=== PATIENT | male | born 1950 | race African-American/Black ===

== ENCOUNTER 2017-10-18 12:34 | Emergency (ER) | payer BC | END 2017-10-18 14:38 | disposition home or self-care (01) | LOC: ERS 12:34 | DX: J20.9 Acute bronchitis, unspecified (principal); I10 Essential (primary) hypertension | CPT/HCPCS: 87804; 99283 ==

== ENCOUNTER 2019-01-23 13:29 | Outpatient (CLI) | payer MEDICARE ==
--- NOTE | 2019-01-23 10:28 | HP ---
HISTORY OF PRESENT ILLNESS: Mr. Richard Marrufo is a very pleasant 68-year-old gentleman, who [facility] of lesions of the right and left feet and lower legs associated with itching, "little" first noted approximately 3 to 4 weeks ago. The patient also has lesions of the right and left upper extremities. The patient states that he was seen by Dr. Glaser and prescribed Bactroban ointment, which he has been utilizing for the past week. The patient states that he had been seen by Dr. Glaser previously for the lesions and at this time, had been prescribed a course of Keflex for 10 days in addition to a steroid cream. At the second visit with Dr. Glaser, the patient states Bactroban was added to the patient's regimen. The patient reports that he utilizes Ivory soap for cleansing of his skin. PAST MEDICAL HISTORY: Hypertension. PAST SURGICAL HISTORY: Negative. MEDICATIONS: 1. Lisinopril/hydrochlorothiazide. 2. Triamcinolone 0.5% cream. 3. Bactroban ointment. ALLERGIES: NO KNOWN DIAGNOSED ALLERGIES. SOCIAL HISTORY: Social history significant for tobacco use of 1 pack of cigarettes per day for 15 years. The patient states that he stopped smoking 9 years ago. The patient admits to the consumption of 4 to 6 beers per day for the past 40 years. FAMILY HISTORY: Family history is negative for diabetes mellitus or coronary artery disease. PHYSICAL EXAMINATION: VITAL SIGNS: Temperature 98.0, pulse 79, respirations 16, and blood pressure 139/71. GENERAL: A 68-year-old gentleman, lying on table in examination room, in no acute distress. HEENT: Normocephalic and atraumatic. NECK: No nuchal rigidity. CHEST: Clear to auscultation. CV: Regular rate and rhythm. ABDOMEN: Soft. EXTREMITIES: Multiple lesions of the right and left feet and lower legs are present associated with scaling and weeping. No open wounds are present over the right or left lower extremities. No cellulitis of the right or left lower extremity is present. No maceration of the skin of the right or left lower extremity is present. A dorsalis pedis pulse and posterior tibial pulse are palpable on the right and on the left. Ejro-na-giazfylp edema of the right and left lower extremities is present on today's exam. NEUROLOGIC: Grossly nonfocal. ASSESSMENT AND PLAN: 1. Stasis dermatitis. The patient has been asked to discontinue the use of ivory soap. He has been asked to cleanse his skin with Dove soap instead. The patient has also been given a prescription for Synalar ointment 0.025% to be applied to the skin up to twice a day. The first application is to be after cleansing of his skin with Dove soap. The patient states he will return to clinic if the lesions fail to improve with the preceding regimen. The patient understands and is in agreement with the preceding treatment plan. 2. Hypertension. Job ID: [id number]
== END 2019-01-23 13:30 | disposition home or self-care (01) ==
LOC: WCC 13:29
PROVIDERS: ATTEND Family Medicine
DX: I87.2 Venous insufficiency (chronic) (peripheral) (principal); I10 Essential (primary) hypertension
CPT/HCPCS: 97602; 99203; G0463

== ENCOUNTER 2019-02-09 06:44 | Emergency (ER) | payer MEDICARE ==
[2019-02-09 08:07] LABS: #Eosinphils 0.3 thou/uL (0.0-0.7); #Lymphocytes 1.1 thou/uL (1.20-3.40); #Monocytes 0.5 thou/uL (0.11-0.59); #Neutrophils 1.8 thou/uL (1.40-6.50); %Basophils 0.6 % (0.0-1.0); %Lymphocytes 30.1 % (21.0-51.0); %Monocytes 12.9 % (0.0-10.0); %Neutrophils 49.4 % (42.0-75.0); Hemoglobin 14.9 g/dL (14.0-18.0); Mean Corpuscular HGB CONC 34.6 g/dL (32.0-36.0); Mean Corpuscular Hemoglobin 32.4 pg (27.0-31.0); Mean Corpuscular Volume 93.8 fL (78.0-98.0); Mean Platelet Volume 6.8 fL (7.4-10.4); Platelet Count 226 thou/uL (130-400); RBC Distribution Width 12.2 % (11.5-14.5); Red Blood Cell (RBC) Count 4.61 mill/uL (4.70-6.10); White Blood Cell (WBC) Count 3.6 thou/uL (4.8-10.8)
[2019-02-09 08:27] LABS: ALT (SGPT) 27 U/L (8-55); AST (SGOT) 31 U/L (5-34); Albumin 4.1 g/dL (3.4-4.8); Alkaline Phosphatase 74 U/L (40-150); Anion Gap 12 mmol/L (10-20); BUN (Urea Nitrogen) 10 mg/dL (8.4-25.7); Bilirubin, Total 0.9 mg/dL (0.2-1.2); Calc. Creatinine Clearance 0 mL/min (70-130); Calcium 10.3 mg/dL (7.8-10.44); Carbon Dioxide 26 mmol/L (23-31); Chloride 98 mmol/L (98-107); Estimated GFR-MDRD Greater than 90; Globulin 4.4 g/dL (2.4-3.5); Glucose 77 mg/dL (80-115); Potassium 4.1 mmol/L (3.5-5.1); Protein, Total 8.5 g/dL (5.8-8.1); Sodium 132 mmol/L (136-145)
== END 2019-02-09 08:42 | disposition home or self-care (01) ==
LOC: ERS 06:44
DX: L03.116 Cellulitis of left lower limb (principal); L30.9 Dermatitis, unspecified; I10 Essential (primary) hypertension
CPT/HCPCS: 80053; 85025; 99283

== ENCOUNTER 2022-03-24 12:04 | Emergency (ER) | payer MEDICARE, OTHER ==
[2022-03-24] MEDS ORDERED: Ketorolac Tromethamine 30 MG/ML VIAL ONE (14:05)
[2022-03-24] MEDS ORDERED: Acetaminophen 500 MG TAB ONE (14:05)
[2022-03-24] MEDS ORDERED: Orphenadrine Citrate 60 MG/2 ML VIAL IM SCH ×2 (14:15→14:30)
[2022-03-24] MEDS ORDERED: Orphenadrine Citrate 60 MG/2 ML VIAL ONE (14:29)
== END 2022-03-24 15:27 | disposition home or self-care (01) ==
LOC: ERS 12:04
DX: S33.5XXA Sprain of ligaments of lumbar spine, initial encounter (principal); I10 Essential (primary) hypertension; X50.1XXA Overexertion from prolonged static or awkward postures, initial encounter; Y93.F2 Activity, caregiving, lifting
CPT/HCPCS: 96372; 99283; J1885; J2360

== ENCOUNTER 2024-02-14 07:24 | Emergency (ER) | payer MEDICARE, OTHER ==
[2024-02-14] MEDS ORDERED: Acetaminophen 325 MG TAB ONE (08:35)
[2024-02-14] MEDS ORDERED: Ketorolac Tromethamine 30 MG (1 mL) VIAL ONE (08:35)
[2024-02-14] MEDS ORDERED: Dexamethasone 4 mg/ml Vial ONE (08:36)
[2024-02-14 08:50] LABS: Influenza A by NAA Not Detected (NotDetected); Influenza B by NAA Not Detected (NotDetected); SARS-CoV-2 NAA Rapid Test DETECTED (NotDetected)
== END 2024-02-14 09:25 | disposition home or self-care (01) ==
LOC: ERS 07:24
DX: U07.1 COVID-19 (principal); I10 Essential (primary) hypertension
CPT/HCPCS: 71046; 87430; 96372; J1100; J1885